=== PATIENT | female | born 1965 | race Caucasian/White ===

== ENCOUNTER 2017-04-30 11:19 | Outpatient (CLI) | payer OTHER | END 2017-04-30 23:59 | disposition home or self-care (01) | LOC: 64 CT 11:19 | PROVIDERS: ATTEND Internal Medicine Critical Care Medicine | DX: K43.9 Ventral hernia without obstruction or gangrene (principal); N28.1 Cyst of kidney, acquired; J90 Pleural effusion, not elsewhere classified; J98.11 Atelectasis; K80.20 Calculus of gallbladder without cholecystitis without obstruction; R18.8 Other ascites | CPT/HCPCS: 74176 ==

== ENCOUNTER 2017-05-08 13:13 | Outpatient (CLI) | payer OTHER | END 2017-05-08 23:59 | disposition home or self-care (01) | LOC: 64 CT 13:13 | PROVIDERS: ATTEND Internal Medicine Critical Care Medicine | DX: R91.1 Solitary pulmonary nodule (principal); J90 Pleural effusion, not elsewhere classified; J96.90 Respiratory failure, unspecified, unspecified whether with hypoxia or hypercapnia | CPT/HCPCS: 74176 ==